=== PATIENT | female | born 1955 | race Caucasian/White ===

== ENCOUNTER → 2017-01-31 16:05 | Outpatient (CLI) | payer OTHER | END | disposition home or self-care (01) | LOC: D.MAMMO 15:30 | DX: Z12.31 Encounter for screening mammogram for malignant neoplasm of breast (principal) ==

== ENCOUNTER → 2019-01-08 23:38 | Outpatient (CLI) | payer OTHER | END | disposition home or self-care (01) | LOC: D.MAMMO 11:45 | PROVIDERS: ATTEND Emergency Medicine | DX: Z12.31 Encounter for screening mammogram for malignant neoplasm of breast (principal) ==

== ENCOUNTER 2019-01-31 09:30 | Outpatient (CLI) | payer OTHER | END 2019-01-31 10:30 | disposition home or self-care (01) | LOC: D.MAMMO 09:30 | PROVIDERS: ATTEND Emergency Medicine | DX: R92.8 Other abnormal and inconclusive findings on diagnostic imaging of breast (principal) ==

== ENCOUNTER → 2019-08-13 10:09 | Outpatient (CLI) | payer OTHER ==
--- NOTE | 2019-08-15 13:30 | ST ---
PATIENT:RACHEL PASTOR MEDICAL RECORD: [id number] SEX: F LOCATION:[facility] ORDER #: ADMISSION DATE: 08/13/19 AGE OF PATIENT: 64 REFERRING PHYSICIAN: INTERPRETING PHYSICIAN: IVONE DUMONT MD DATE OF SERVICE: 08/13/2019 PROCEDURE: Nuclear stress test. INDICATIONS: Angina, shortness of breath, abnormal ECG, hypertension. She was exercised on standard Lexiscan protocol with 33 mCi of sestamibi injected at peak stress, 11 mCi used previously for rest images. FINDINGS: Gated SPECT reveals preserved ejection fraction at 74% with good wall motion and thickening and brightening throughout all segments. SPECT imaging: Cardiolite was used as myocardial perfusion agent. There is homogeneous uptake throughout all segments at rest and stress with no evidence of inducible ischemia or previous infarction. OVERALL IMPRESSION: 1. This is a normal nuclear stress test with no evidence of inducible ischemia or previous infarction. 2. Gated SPECT reveals a preserved ejection fraction at 74%. In this patient with ongoing symptomatology, the current scan does not suggest the presence of hemodynamically significant coronary artery disease. Evaluate noncardiac etiology of chest pain. TRANSINT:[id number] Voice Confirmation ID: [id number] DOCUMENT ID: [id number] IVONE DUMONT MD at 1330 CC: IDALIA ALEGRIA [id number] DICTATION DATE: 08/13/19 1625 E COMMERCE PROJECT MANAGER: 08/14/19 0849 DEP CLI 08/13/19 [facility] [address] [id number]
== END | disposition home or self-care (01) ==
LOC: D.HCCARDIO 10:09
PROVIDERS: ATTEND Internal Medicine Interventional Cardiology
DX: I20.9 Angina pectoris, unspecified (principal)

== ENCOUNTER 2019-12-03 21:17 | Inpatient (IN) | payer OTHER ==
--- NOTE | ~2019-12-03 | PSY ---
PATIENT NAME:RACHEL PASTOR MEDICAL RECORD: [id number] : 53 LOCATION:[facility] ADMISSION DATE: 12/04/19 ACCOUNT: [id number] PSYCHIATRIC EVALUATION DATE OF EVALUATION: 12/04/19 IDENTIFYING DATA: The patient is 64 years old and she is admitted to the hospital secondary to suicidal thoughts. CHIEF COMPLAINT: Depression. HISTORY OF PRESENT ILLNESS: The patient is a very nice woman who unfortunately has had some significant tragedies recently. Most specifically the of her 44-year-old son, 1 year ago. Apparently, he in his sleep of a pulmonary embolism. The patient is the one who found him. She has been very depressed. She has been making some vague thoughts about not wanting to live to her and her sister, both of whom are alarmed. She talks to me in a very rational and coherent manner about her loss and convinces me that she is not actively suicidal. She has not been accepting treatment in the past for her depression, but is willing to do so now. She does endorse numerous neurovegetative depressive symptoms. PAST MEDICAL HISTORY: Significant for hyperlipidemia and hypertension. PAST PSYCHIATRIC HISTORY: Negative prior to a year ago and in the past year, attempts have been made to treat her with antidepressant medication, which she has refused. ALLERGIES: PENICILLIN AND CODEINE. CURRENT MEDICATIONS: Include Mobic, Zestril, Lipitor and Synthroid. SOCIAL HISTORY: The patient has adult children, one of whom as mentioned above. Her of the past 20 years is a long distance regional flatbed truck driver, he is not at home very much. 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 She has no history of drug or alcohol abuse. MENTAL STATUS EXAMINATION: The patient is awake, alert and oriented to person, place and somewhat to time and situation. Her mood is anxious. Her affect is constricted. Thought processes are circumstantial. Memory, concentration, and abstraction abilities are mildly impaired and she denies any intent to harm herself or others as well as overt psychotic symptoms. ASSETS: Supportive family members. LIABILITIES: Limited insight. DIAGNOSTIC IMPRESSION: AXIS I: Major depression, severe, single episode without psychotic features. AXIS II: None. AXIS III: Hypertension, hyperlipidemia, hypothyroidism. AXIS IV: Severe. AXIS V: Global assessment of functioning is 45. PLAN: At this time, the patient was admitted to the hospital secondary to some vague thoughts of wanting to harm herself. She is not acutely dangerous and may be discharged at any time. I have asked her to stay for another 24 hours of observation and she has agreed to do so. I will put in the discharge orders for tomorrow. I am going to start her on an antidepressant medication and it is my recommendation that she have follow up with Cortney Turner at [facility] if her insurance will cover it. If not, another outpatient setting that is in network should be arranged. TRANSINT:[id number] Voice Confirmation ID: [id number] DOCUMENT ID: [id number] ASHLEE JARAMILLO MD CC: [id number] DICTATION DATE: 12/04/19 1133 HEAD STOCK OPERATOR: 12/04/19 1308 ADM IN [facility] [address] [place] [address]
--- NOTE | 2019-12-03 21:17 | NUR ---
PT PLACED IN E20. PT TEARFUL. DENIES SI.
[2019-12-03] MEDS ORDERED: LISINOPRIL (21:26)
--- NOTE | 2019-12-03 23:04 | NUR ---
PT STATES WILL STAY VOLUNTARILY. URINE TO LAB.
[2019-12-03 23:36] LABS: UDS - AMPHET NEGATIVE QUAL (NEGATIVE); UDS - BARB NEGATIVE QUAL (NEGATIVE); UDS - BENZO POSITIVE QUAL (NEGATIVE); UDS - COCAINE NEGATIVE QUAL (NEGATIVE); UDS - OPIATE NEGATIVE QUAL (NEGATIVE); UDS - PCP NEGATIVE QUAL (NEGATIVE); UDS - THC NEGATIVE QUAL (NEGATIVE)
[2019-12-03 23:40] LABS: APPEARANCE CLEAR (CLEAR); BILIRUBIN NEGATIVE (NEGATIVE); COLOR YELLOW (YELLOW); GLUCOSE NEGATIVE (NEGATIVE); KETONE NEGATIVE (NEGATIVE); NITRITE NEGATIVE (NEGATIVE); PROTEIN NEGATIVE (NEGATIVE); SPECIFIC GRAVITY 1.015 (1.005-1.020); UROBILINOGEN NORMAL (NORMAL)
[2019-12-03 23:42] LABS: HEMATOCRIT 49.1 % (36.0-48.0); HEMOGLOBIN 15.6 g/dL (12-16); LYMPHOCYTES 39.6 % (15-50); MCH 29.9 pg (26.0-34.0); MCHC 31.8 g/dL (31.0-37.0); MCV 94.2 fL (80.0-100.0); MEAN PLATELET VOLUME 9.7 fL (7.4-10.4); PLATELET COUNT 310 10x3/uL (130-400); RBC 5.21 10x6/uL (4.00-5.40); RDW 12.1 % (11.5-14.5); WBC 7.9 10x3/uL (4.8-10.8)
[2019-12-03 23:43] LABS: BACTERIA FEW /hpf (NEGATIVE); EPITHELIAL CELLS 0-5 /hpf (0-5); RED CELLS - URINE 0-5 /hpf (0-5); WHITE CELLS - URINE 0-5 /hpf (NEGATIVE)
[2019-12-03 23:48] LABS: ANION GAP 15.1 mmol/L (8-16); CALCIUM 8.8 mg/dL (8.5-10.1); CARBON DIOXIDE 25.8 mmol/L (21.0-32.0); POTASSIUM - SERUM 3.9 mmol/L (3.5-5.1)
[2019-12-03 23:53] LABS: ALBUMIN 3.9 g/dL (3.4-5.0); BILIRUBIN - TOTAL 0.15 mg/dL (0.2-1.3); PROTEIN - SERUM 7.8 g/dL (6.4-8.2)
--- NOTE | 2019-12-03 23:54 | NUR ---
AWAITING PT'S LAB. HAVE TALKED TO JONO IN HALF-WAY. PT TEARFUL. WILL MONITOR.
--- NOTE | 2019-12-04 00:05 | NUR ---
PT ACCEPTED TO [facility]- REPORT TO JONO. ROOM 1123.
[2019-12-04 00:45] VITALS: BP 163/76; BMI 29.8
[2019-12-04] MEDS ORDERED: LEVOTHYROXINE50 MCG (06:45)
[2019-12-04 07:33] LABS: CHOL - HDL RATIO 2.2 ratio (2.3-4.1); LDL-HDL RATIO 1.1 ratio (1.5-3.5); THYROID STIMULATING HORMONE 2.75 uIU/mL (0.36-3.74)
[2019-12-04 09:13] VITALS: BP 147/73
[2019-12-04] MEDS ORDERED: LISINOPRIL20 MG PO (09:20)
[2019-12-04] MEDS ORDERED: MOBIC7.5 MG PO (09:21)
[2019-12-04] MEDS ORDERED: LIPITOR40 MG PO (09:22)
[2019-12-04] MEDS ORDERED: HCTZ25 MG PO (09:23)
[2019-12-04 09:24] VITALS: Wt 70.2 kg
--- NOTE | 2019-12-04 10:30 | NUR ---
AWAKE AND ALERT, AND ORIENTED X3. CALM AND COOPERATIVE WITH CARE AND ASSESSMENT. ADMINISTER PRESCRIBED MEDICATIONS. COMPLIANT WITH MEDICATIONS. MONITOR FOR BEHAVIORS AND CONTINUE PLAN OF CARE.
[2019-12-04] MEDS ORDERED: ZOLOFT50 MG PO (11:36)
[2019-12-04 23:13] VITALS: BP 127/63
--- NOTE | 2019-12-04 23:37 | NUR ---
PATIENT IS AAOX3, QUIET, STAYS TO HERSELF, CAN MAKE NEEDS KNOWN, WILL SMILE AT TIMES WHILE SPEAKING TO STAFF. COMPLIANT WITH MEDS. WILL MONITOR
[2019-12-05 06:09] LABS: RAPID PLASMA REAGIN Non Reactive (Non Reactive)
--- NOTE | 2019-12-05 08:30 | NUR ---
PATIENT CAME TO THE UNIT THIS A.M. WANTING TO SPEAK WITH STAFF. NURSE ALLOWED HIM TO COME SPEAK WITH 2X NURSES. HE DEMANDED THAT THE PT BE DISCHARGED WITH HIM AT THAT MOMENT. NURSE CALLED Todd GUTHRIE, CUSTOMER SERVICE SUPERVISOR CALLED. SHE CAME AND SPOKE WITH PATIENT . SHE WILL BE DISCHARGING FROM UNIT TODAY AT 1530.
[2019-12-05 09:03] VITALS: BP 143/87
--- NOTE | 2019-12-05 10:13 | NUR ---
PT SITTING AND DOING A PUZZLE WITH OTHER PEERS. PT IS ALERT AND ORIENTED TO PERSON, PLACE AND TIME. PT CAN MAKE NEEDS KNOWN. PT IS COMPLIANT WITH MEDS, VITALS AND ASSESSMENTS. PT IS VERY FRIENDLY WITH STAFF AND PEERS. PT GAVE STAFF HER PHARMACY, CORRECT INSURANCE INFORMATION. WILL CONT PLAN OF CARE. PT HAS NOT HAD ANY CRYING EPISODES. WILL CONT PLAN OF CARE.
--- NOTE | 2019-12-05 10:15 | NUR ---
Nutrition Follow-up: Diet: Regular PO intake: ~43% average x last 3 meals Last BM: 12/04/19. WT: 173.4# (12/04/19) Meds reviewed. Labs noted: Mean Plasma Glucose 117(WNL), A1c 5.7% (WNL) Recommend continue current diet. Encourage PO intake. Will continue to monitor PO intake and add Ensure with meals if it remains <50% average. RD following.
--- NOTE | 2019-12-05 13:41 | NUR ---
BRANDON HAD SESSION WITH PT TO GO OVER RESOURCES IN DISCHARGE PACKET AND DISCUSS TREATMENT NEEDS ONCE DISCHARGED. SW PUT SUICIDE PREVENTION RESOURCES, GRIEF SELF CARE HANDBOOK, [facility] HANDOUT WITH TIMES FOR WALK IN CLINICS, GRIEF COUNSELORS IN THE AREA, GRIEF SUPPORT GROUPS IN [place], TIMES AND LOCATIONS, DR [facility]AGE'S CONTACT INFORMATION IN DISCHARGE PACKET. SW TALKED TO PT ABOUT SELF CARE AND JOURNALING FEELINGS INSTEAD OF HOLDING THEM IN. SW ALSO WENT OVER THE IMPORTANCE OF NOT DRINKING WHILE TAKING THE ANTI DEPRESSANT. PT REPORTED AGAIN DRINKING 3 8OZ GLASSES A DAY OF GIN OR WINE. SW DISCUSSED THE IMPORTANCE OF CONTINUING WITH OUTPATIENT TREATMENT AND FOLLOWING UP WITH HER PCP. PCP FOLLOW UP APPOINTMENT WAS MADE BY BRANDON AND WRITTEN ON PT'S DISCHARGE PACKET. PT VERBALIZED UNDERSTANDING OF DISCUSSION. PT STATED SHE APPRECIATED ALL OF THE SERVICES OFFERED AND WILL USE THE TOOLS SHE RECIEVED HERE TO BENEFIT HER RECOVERY.
--- NOTE | 2019-12-05 13:47 | NUR ---
LATE NOTE FROM 12-04 PT PARTICIPATED IN GROUP THERAPY ABOUT COPING SKILLS AND FOLLOWED WITH INDIVIDUAL SESSION. PT STATED SHE WAS VERY ANGRY AT TIMES DUE TO SON'S AND ALL THE EVENTS FOLLOWING. PT STATED SHE WORKS, WORKS OUT, AND THEN DRINKS WHEN SHE IS BY HERSELF TO COPE WITH ALL THE LOSS IN HER LIFE. SW DISCUSSED THE STAGES OF GRIEF AND THERE BEING NO TIME FRAME FOR HER TO SAY SHE NEEDS TO BE HEALED. SW ALSO DISCUSSED DIFFERENT COPING TECHNIQUES PT COULD UTILIZE TO DECREASE SYMPTOMS OF DEPRESSION. PT STATED SHE WAS GRATEFUL FOR GROUP AND SESSION AND UNDERSTANDS MORE ABOUT THE PROCESS.
--- NOTE | 2019-12-05 14:36 | NUR ---
PT WEIGHT OBTAINED. FOR DISCHARGE. PAPERWORK GONE OVER WITH PT AND SIGNED FOR DISCHARGE.
--- NOTE | 2019-12-05 16:16 | NUR ---
PT DISCHARGED WITH THIS SHIFT. ASKED FOR OUR NURSE DRAWBENCH OPERATOR TO ASK SOME QUESTIONS. NURSE ASKED IF THERE WAS ANYTHING I COULD DO TO HELP. HE ASKED ABOUT WHAT APPOINTMENTS WE MADE FOR HER. NURSE EXPLAINED THE ONLY APPOINTMENT WE WERE ALLOTED TO MAKE WAS HER PRIMARY CARE DOCTOR. ALL THE OTHER RESOURCES GIVEN FOR THERAPY WAS WALK IN AND OUTPATIENT BASES. WE WERE NOT REQUIRED TO MAKE THOSE APPOINTMENTS. ALL THE INFORMATION FOR AA MEETINGS AND WALKIN CLINICS WAS IN THE PAPERWORK GOING HOME WITH THEM. PT VERBALIZIED UNDERSTANDING. SPOUSE ASKED IF THERE WAS ANY FAMILY CLINICS OR FAMILY THERAPY. NURSE EXPLAINED THE PAPERWORK IN THE [place] WOULD HELP, BUT OFF THE TOP OF MY HEAD THE [facility]IN[facility] ON [address] HAS DIFFERENT TYPES OF CLINICS. PT ATTEMPTED TO PULL HER OUT OF THE DOOR. NURSE TOLD THEM IF THEY HAD ANY QUESTIONS TO CALL THE UNIT ADN WE WOULD HELP THE BEST WE COULD. HE STATED IS THAT RIGHT?" NURSE STATED THE BEST WE CAN HELP. PT LEFT WITH BELONGINGS.
== END 2019-12-05 15:35 | disposition home or self-care (01) | DRG 885 ==
LOC: D.ER 21:17 → D.PSYCH 12-04 00:01
PROVIDERS: Family Medicine; ADMIT Psychiatry & Neurology Psychiatry; ATTEND Psychiatry & Neurology Psychiatry
DX: F32.2 Major depressive disorder, single episode, severe without psychotic features (principal); I10 Essential (primary) hypertension; E78.5 Hyperlipidemia, unspecified; E03.9 Hypothyroidism, unspecified; F10.129 Alcohol abuse with intoxication, unspecified

== ENCOUNTER → 2021-01-05 10:42 | Outpatient (CLI) | payer OTHER ==
[2019-12-04 09:24] VITALS: BMI 29.7
[~2021-01-05 10:42] MED LIST: HCTZ25 MG PO; LEVOTHYROXINE50 MCG; LIPITOR40 MG PO; LISINOPRIL; LISINOPRIL20 MG PO; MOBIC7.5 MG PO; ZOLOFT50 MG PO
== END | disposition home or self-care (01) ==
LOC: D.MRI 10:42
DX: M54.5 Low back pain (principal); M54.6 Pain in thoracic spine; M54.9 Dorsalgia, unspecified; G89.18 Other acute postprocedural pain

== ENCOUNTER 2021-01-24 19:36 | Emergency (ER) | payer OTHER ==
[~2021-01-24] VITALS: Ht 162.6 cm; Wt 71.4 kg
[2021-01-24 19:40] VITALS: Ht 162.6 cm; Wt 71.4 kg
[2021-01-24] MEDS ORDERED: XANAX1 MG PO (19:44)
[2021-01-24] MEDS ORDERED: TORADOL10 MG PO (19:45)
[2021-01-24 20:26] LABS: INR 1.06 (0.85-1.17); PROTIME 12.8 SECONDS (11.6-15.0)
[2021-01-24 20:27] LABS: D-DIMER-QUANTITATIVE < 0.27 ug/mLFEU (0.20-0.54)
[2021-01-24 20:33] LABS: BASOPHILS 0.4 % (0-2); EOSINOPHILS 0.5 % (0-7); HEMATOCRIT 42.4 % (36.0-48.0); IMMATURE GRANULOCYTES 0.2 % (0-5); LYMPHOCYTE ABS# 1.89 10x3/uL (1.18-3.74); LYMPHOCYTES 17.8 % (15-50); MCH 30.2 pg (26.0-34.0); MCV 91.4 fL (80.0-100.0); MEAN PLATELET VOLUME 9.8 fL (7.4-10.4); MONOCYTES 8.6 % (2-11); NEUTROPHIL ABS# 7.68 10x3/uL (1.56-6.13); NEUTROPHILS 72.5 % (40-80); PLATELET COUNT 295 10x3/uL (130-400); RBC 4.64 10x6/uL (4.00-5.40); WBC 10.6 10x3/uL (4.8-10.8)
[2021-01-24 20:36] LABS: BILIRUBIN NEGATIVE (NEGATIVE); KETONE NEGATIVE (NEGATIVE); NITRITE NEGATIVE (NEGATIVE); UROBILINOGEN NORMAL mg/dL (< 2)
[2021-01-24 20:39] LABS: WHITE CELLS - URINE 25-50 HPF (0-4)
[2021-01-24 20:40] LABS: BACTERIA MODERATE HPF (NONE SEEN); SQUAMOUS EPITHELIAL 0-5 HPF (0-4)
[2021-01-24 20:46] LABS: ALBUMIN 3.8 g/dL (3.4-5.0); ALKALINE PHOSPHATASE 89 U/L (30-120); ALT (SGPT) 47 U/L (10-68); BILIRUBIN - TOTAL 0.36 mg/dL (0.2-1.3); CALC OSMOLALITY 278 mosm/kg (275-300); CARBON DIOXIDE 29.8 mmol/L (21.0-32.0); CHLORIDE - SERUM 101 mmol/L (98-107); CKMB 0.1 U/L (0.0-3.6); CREATINE KINASE 92 UL (21-215); CREATININE - SERUM 1.1 mg/dL (0.6-1.3); GLUCOSE 162 mg/dL (74-106); MAGNESIUM - SERUM 1.9 mg/dL (1.8-2.4); PROTEIN - SERUM 7.3 g/dL (6.4-8.2); SODIUM 136 mmol/L (136-145); TROPONIN-I < 0.017 ng/mL (0.000-0.060); UREA NITROGEN 20 mg/dL (7-18); eGFR NON AFRICAN AMERICAN 53 mL/min (90-120)
[2021-01-24 20:55] LABS: POTASSIUM - SERUM 2.8 mmol/L (3.5-5.1)
[2021-01-24] MEDS ORDERED: MACROBID100 MG PO (21:38)
[2021-01-24 23:13] VITALS: BP 136/75
== END 2021-01-24 23:15 | disposition home or self-care (01) ==
LOC: D.ER 19:36
PROVIDERS: Family Medicine
DX: N39.0 Urinary tract infection, site not specified (principal); E87.6 Hypokalemia; R33.9 Retention of urine, unspecified; I10 Essential (primary) hypertension; E78.5 Hyperlipidemia, unspecified